=== PATIENT | female | born 1970 | race Caucasian/White ===

== ENCOUNTER 2017-12-15 01:26 | Emergency (ER) | payer OTHER, MEDICAID ==
[~2017-12-15] VITALS: Ht 152.4 cm; Wt 59.0 kg
[2017-12-15] MEDS ORDERED: NORCO 5-325 TA1 EACH PO (02:17)
[2017-12-15] MEDS ORDERED: ZOFRAN ODT4 MG PO (02:17)
[2017-12-15 02:30] VITALS: BP 167/92
== END 2017-12-15 02:30 | disposition home or self-care (01) ==
LOC: M.ERS 01:26
DX: S86.912A Strain of unspecified muscle(s) and tendon(s) at lower leg level, left leg, initial encounter (principal); I10 Essential (primary) hypertension; G43.909 Migraine, unspecified, not intractable, without status migrainosus; F90.9 Attention-deficit hyperactivity disorder, unspecified type; F17.210 Nicotine dependence, cigarettes, uncomplicated; Z88.6 Allergy status to analgesic agent; Z91.040 Latex allergy status; Z88.5 Allergy status to narcotic agent; W01.0XXA Fall on same level from slipping, tripping and stumbling without subsequent striking against object, initial encounter; Y93.89 Activity, other specified; Y92.89 Other specified places as the place of occurrence of the external cause; Y99.8 Other external cause status

== ENCOUNTER 2020-06-27 23:13 | Emergency (ER) | payer OTHER ==
[~2020-06-27] VITALS: Ht 152.4 cm; Wt 60.6 kg
[~2020-06-27 23:13] MED LIST: NORCO 5-325 TA1 EACH PO; ZOFRAN ODT4 MG PO
[2020-06-27] MEDS ORDERED: CARVEDILOL12.5 MG PO (23:24)
[2020-06-27] MEDS ORDERED: LIPITOR 20 MG T20 M1 PO (23:24)
[2020-06-27] MEDS ORDERED: ASA81BEC PO (23:24)
[2020-06-27] MEDS ORDERED: BUSPIRONE HCL15 MG PO (23:25)
[2020-06-27] MEDS ORDERED: WELLBUTRIN 75 M75 M1 PO (23:25)
[2020-06-27] MEDS ORDERED: WELLBUTRIN 100100 MG PO (23:25)
[2020-06-27] MEDS ORDERED: OMEPRAZOLE 20 M20 M1 PO (23:26)
[2020-06-27] MEDS ORDERED: LISINOPRIL2.5 MG PO (23:27)
[2020-06-27] MEDS ORDERED: DESYREL150 MG PO (23:28)
[2020-06-28 00:22] LABS: URINE BILIRUBIN NEGATIVE (Negative); URINE BLOOD NEGATIVE (Negative); URINE CLARITY CLEAR; URINE COLOR YELLOW; URINE GLUCOSE-RANDOM NEGATIVE (Negative); URINE KETONES NEGATIVE (Negative); URINE LEUKOCYTES-REFLEX NEGATIVE (Negative); URINE NITRITE-REFLEX NEGATIVE (Negative); URINE PROTEIN NEGATIVE (Negative); URINE UROBILINOGEN 0.2 E.U./dl (0.2-1.0)
[2020-06-28 00:29] LABS: AMP/METHAMP Negative (Negative); BARBITURATES Negative (Negative); BENZODIAZEPINES Negative (Negative); COCAINE Negative (Negative); METHADONE Negative (Negative); OPIATES Negative (Negative); PCP Negative (Negative); THC Negative (Negative)
[2020-06-28 01:15] LABS: ABSOLUTE MONOCYTES 0.5 thou/uL (0.0-1.2); ABSOLUTE NEUTROPHILS 3.7 thou/uL (1.6-8.1); BASOPHILS 0.2 %; CALCIUM 8.5 mg/dL (8.5-10.1); CREATININE 0.9 mg/dL (0.6-1.3); EOSINOPHILS 0.6 %; HEMATOCRIT 36.1 % (37.0-47.0); HEMOGLOBIN 12.3 gm/dL (12.0-15.0); LYMPHOCYTES 18.9 %; MCH 28.3 pg (26.0-34.0); MCHC 34.2 g/dL (28.0-37.0); MCV 82.9 fL (80.0-100.0); MONOCYTES 10.1 %; MPV 7.5 fl. (7.2-11.1); NUCLEATED RBCS 0 /100WBC; PLATELET COUNT* 273 thou/uL (150-400); POLYS 70.2 %; POTASSIUM 3.3 mmol/L (3.5-5.1); RBC 4.35 mil/uL (4.20-5.00); RDW-CV 15.4 % (10.5-14.5); WBC 5.3 thou/uL (4.0-11.0)
[2020-06-28 01:20] LABS: ALBUMIN 3.9 g/dL (3.4-5.0); TOTAL BILIRUBIN 0.4 mg/dL (<0.1-1.0); TOTAL PROTEIN 7.2 g/dL (6.4-8.2)
[2020-06-28 01:25] LABS: APTT 24.9 Seconds (25.0-31.3); INR 1.1; PROTIME 11.4 Seconds (9.20-11.50)
[2020-06-28 03:14] VITALS: BP 147/84
== END 2020-06-28 03:15 | disposition short-term general hospital (02) ==
LOC: M.ERS 23:13
PROVIDERS: Personal Emergency Response Attendant
DX: S02.119A Unspecified fracture of occiput, initial encounter for closed fracture (principal); I10 Essential (primary) hypertension; G43.909 Migraine, unspecified, not intractable, without status migrainosus; F17.210 Nicotine dependence, cigarettes, uncomplicated; Z20.828 Contact with and (suspected) exposure to other viral communicable diseases; Z91.040 Latex allergy status; Z88.6 Allergy status to analgesic agent; W18.39XA Other fall on same level, initial encounter; Y93.89 Activity, other specified; Y92.89 Other specified places as the place of occurrence of the external cause; Y99.8 Other external cause status